=== PATIENT | female | born 1970 | race Caucasian/White ===

== ENCOUNTER 2024-02-25 19:14 | Inpatient (IN) ==
--- NOTE | 2024-02-25 19:35 | Emergency Department Note ---
Impression & Plan Leukocytosis, Abdominal pain, Bowel obstruction ED Provider Note NAME: JAMIE MARTÍNEZ AGE: 53 SEX: F : 1970 ARRIVES VIA: Walk-In INFORMANT: Patient ED PROVIDER(S): Kingston Mac DO CHIEF COMPLAINT: Abdominal pain HPI: Patient is a 53-year-old female with a past medical history of headache and lower back pain who presents to the ER for diffuse abdominal pain. She notes she has not had a bowel movement for 7 days. She is taking laxatives and is unable to go. She has a severe pain throughout her lower abdomen. Denies any urinary symptoms up until about 3 days ago when she has dysuria. Denies any headache or change in vision. No chest pain or shortness of breath. No other exacerbating or remitting factors. Still has her gallbladder and appendix. Additional history obtained from daughter who notes that she has been waxing and waning severe abdominal pain for several days. ADDITIONAL HISTORY OBTAINED: Per HPI Chronic Medical/Social Conditions Affecting Care: Per HPI PAST MEDICAL HISTORY:See Below PAST SURGICAL HISTORY:See Below FAMILY HISTORY:See Below SOCIAL HISTORY:See Below HOME MEDICATIONS:See Below ALLERGIES:See Below VITALS:See Below PHYSICAL EXAMINATION: GENERAL: Sitting up in bed, alert, moderate distress holding abdomen rolling around EYE EXAM: normal conjunctiva. PERRL and EOM's grossly intact. OROPHARYNX: mucous membranes are moist LUNGS: Clear to auscultation. Normal chest wall mechanics HEART: no murmurs, S1 normal and S2 normal ABDOMEN: abdomen soft, mild diffuse lower abdominal pain, normo-active bowel sounds, no masses, no rebound or guarding. BACK: Back is symmetrical on inspection and there is no deformity, no midline tenderness, no CVA tenderness. SKIN: no rashes and no bruising UPPER EXTREMITIES: upper extremities are grossly normal. LOWER EXTREMITIES: No pitting edema. NEURO EXAM: Normal sensorium, cranial nerves II-XII grossly intact, normal speech, no gross weakness of arms, no gross weakness of legs. MEDICAL DECISION MAKING: Patient is a 53-year-old female who presents ER for the below stated complaint. IV was established medicos obtained. Labs show leukocytosis of 20,000. No significant anemia. BMP with hyponatremia at 128. Mild hypokalemia 3.2. LFTs was unremarkable. T. bili slightly elevated at 1.4. Lipase was normal. CT abdomen pelvis showed a likely bowel obstruction secondary to an abnormality of the colon. I called gastroenterology and spoke with Dr. Kilgore who recommended admission and discussion with general surgery. Discussed with Lio from general surgery and patient was seen and evaluated. Patient was given IV fluids. IV Cipro and Flagyl. Discussed with the hospitalist. Patient was also given multiple doses of morphine. Patient was admitted for further workup. Consults/Care Managements Discussions: Per MDM Triage Nursing notes reviewed. Limited review of prior medical records performed Vital Signs: reviewed and remarkable for no significant abnormalities Differential diagnosis: Differential diagnoses includes but is not limited to gastritis, peptic ulcer disease, GERD, gallbladder disease, pancreatitis, small bowel obstruction, appendicitis, diverticulitis, hernia, urinary tract infection, torsion, perforation, trauma, infectious. ER treatment provided: See below Diagnostics interpreted by me include EKG and cardiac monitoring as listed below: -Cardiac Monitoring: An order was placed for continuous cardiac monitoring. The monitor shows a rate of 100 with sinus rhythm. -ECG: none -Laboratory studies:Interpreted by me as stated above in MDM and shown below. 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) Right knee pain (Acute) Shortness of breath (Acute) Shoulder pain (Acute) Shoulder pain (Acute) Social History Smoking Status: Current every day smoker Tobacco Type: Cigarettes Feels Safe at Home: Yes Allergies Allergies Allergy/AdvReac Type Severity Reaction Status Date / Time Penicillins Allergy Severe HIVES Unverified 02/18/17 20:36 fluticasone AdvReac Unknown thrush Unverified 02/18/17 20:36 salmeterol AdvReac Unknown thrush Unverified 02/18/17 20:36 Home Meds Home Medications Medication Instructions Recorded Confirmed aripiprazole 2 mg tablet 2 mg PO DAILY 02/25/24 02/25/24 fluticasone propionate 50 2 spray intranasal DAILY 02/25/24 02/25/24 mcg/actuation nasal spray,suspension hydroxyzine HCl 25 mg tablet 25 mg PO 02/25/24 Results & Data (ED) Vital Signs Vital Signs - 24 hr 02/25/24 19:22 02/25/24 19:35 02/25/24 19:40 Pulse Rate 120 H 76 Pulse Rate [Apical] Pulse Rhythm [Apical] Pulse Strength [Apical] Respiratory Rate 18 Respiratory Effort / Characteristics Respiratory Depth Blood Pressure [Right Arm] Blood Pressure Mean [Right Arm] Blood Pressure Position [Right Arm] Pulse Oximetry 98 Oxygen Delivery Method Room Air Oxygen Flow Rate Sepsis Recent Fever Within 48 Hours No Sepsis New/Unexplained Change in Mental Status No Sepsis Action Taken by Nursing No Action Required 02/25/24 19:44 02/25/24 21:15 02/25/24 22:01 Pulse Rate Pulse Rate [Apical] 111 H 104 H 100 H Pulse Rhythm [Apical] Regular Regular Pulse Strength [Apical] Normal Normal Respiratory Rate 21 18 18 Respiratory Effort / Characteristics Spontaneous Non-Labored Spontaneous Non-Labored Spontaneous Respiratory Depth Normal Normal Blood Pressure [Right Arm] 136/79 124/77 118/78 Blood Pressure Mean [Right Arm] 98 92 91 Blood Pressure Position [Right Arm] Semi-fowlers Lying Lying Pulse Oximetry 94 96 94 Oxygen Delivery Method Nasal Cannula Nasal Cannula Room Air Oxygen Flow Rate 2 2 2 Sepsis Recent Fever Within 48 Hours Sepsis New/Unexplained Change in Mental Status Sepsis Action Taken by Nursing Laboratory Data 02/25/24 19:39 02/25/24 19:39 Lab Results 02/25/24 02/25/24 02/25/24 Range/Units 19:39 19:42 22:23 WBC 28.45 H (4.8-10.8) K/ul RBC 4.69 (4.20-5.40) M/uL Hgb 13.5 (12.0-16.0) g/dl POC Hgb 13.9 (12.0-16.0) g/dl Hct 39.4 (37.0-47.0) % POC Hct 41 (37-47) % MCV 84.0 (80.0-100.0) fL MCH 28.8 (25.0-34.0) pg MCHC 34.3 (32.0-36.0) g/dL RDW Std Deviation 38.3 (36.4-46.3) fL RDW Coeff of Sarthak 12.5 (11.5-14.5) % Plt Count 271 (130-400) K/uL MPV 10.6 (9.4-12.4) fL Immature Gran % (Auto) 1.1 % Neut % (Auto) 85.4 % Lymph % (Auto) 8.6 % [place] % (Auto) 4.6 % Eos % (Auto) 0.0 % Baso % (Auto) 0.3 % Neut # (Auto) 24.28 H (1.40-6.50) K/uL Lymph # (Auto) 2.45 (1.20-3.40) K/uL [place] # (Auto) 1.32 H (0.11-0.59) K/uL Eos # (Auto) 0.00 (0.00-0.50) K/uL Baso # (Auto) 0.09 (0.00-0.20) K/uL Immature Gran # (Auto) 0.31 H (0.01-0.20) K/uL POC Sodium 127 L (135-144) mmol/L Sodium 128 L (136-145) mmol/L POC Potassium 3.1 L (3.3-5.0) mmol/L Potassium 3.2 L (3.5-5.1) mmol/L POC Chloride 88 L (101-112) mmol/L Chloride 90 L (98-107) mmol/L Carbon Dioxide 29 (21-32) mmol/L POC Total CO2 25 (24-31) mmol/L Anion Gap 9 (3-11) POC Anion Gap 18.0 (16-25) mmol/L POC BUN 20 H (7-18) mg/dl BUN 21 (6-23) mg/dl Creatinine 0.91 (0.6-1.2) mg/dl POC Creatinine 1.0 (0.6-1.3) mg/dl Est Cr Clr Drug Dosing Not Reportable eGFR 74.50 BUN/Creatinine Ratio 23.1 H (10-20) Glucose 125 H (70-99(Fasting)) mg/dl POC Glucose (other) 123 H (70-99) mg/dl Lactate 0.7 (0.4-2.0) mmol/L Calcium 8.7 (8.6-10.3) mg/dl POC Ioniz Calcium Laverne 0.86 L (1.12-1.32) mmol/l Total Bilirubin 1.4 H (0.2-1.0) mg/dl AST 11 L (13-39) U/L ALT 10 (7-52) U/L Alkaline Phosphatase 130 H (34-104) U/L Total Protein 6.4 (6.0-8.3) gm/dl Albumin 3.4 (3.4-5.0) gm/dl Globulin 3.0 (2.5-4.0) gm/dl Albumin/Globulin Ratio 1.1 (0.9-2) Lipase 4 L (11-82) U/L Administered Medications Discontinued Medications Sodium Chloride (Nss) 1,000 mls @ 999 mls/hr IV .Q1H1M ONE Stop: 02/25/24 20:35 Last Infusion: 02/25/24 20:45 Dose: Infused Documented By: Admin: 02/25/24 19:40 Dose: 999 mls/hr Documented By: SKYE Metronidazole (Flagyl) 500 mg in 100 mls @ 100 mls/hr IV NOW STA; Protocol Stop: 02/25/24 23:15 Last Admin: 02/25/24 22:56 Dose: 100 mls/hr Documented By: ESTRADA Sodium Chloride (Nss) 1,000 mls @ 999 mls/hr IV .Q1H1M ONE Stop: 02/25/24 23:16 Last Admin: 02/25/24 22:35 Dose: 999 mls/hr Documented By: ESTRADA Ioversol (Optiray 320 100ml) 92 ml IV ONCE ONE Stop: 02/25/24 20:00 Last Admin: 02/25/24 19:59 Dose: 92 ml Documented By: OSMAN Ketorolac Tromethamine (Ketorolac Tromethamine 15 Mg/Ml Vial) 10 mg IV NOW ONE Stop: 02/25/24 19:36 Last Admin: 02/25/24 19:45 Dose: 10 mg Documented By: ESTRADA Morphine Sulfate (Morphine Sulfate 4 Mg/Ml 1 Ml Carp\Vial) 4 mg IV NOW STA Stop: 02/25/24 19:36 Last Admin: 02/25/24 19:45 Dose: 4 mg Documented By: SAUNDRAV Morphine Sulfate (Morphine Sulfate 4 Mg/Ml 1 Ml Carp\Vial) 4 mg IV NOW STA Stop: 02/25/24 22:19 Last Admin: 02/25/24 22:34 Dose: 4 mg Documented By: SAUNDRAV Ondansetron HCl (Ondansetron Inj 2 Mg/Ml 2 Ml Vial) 4 mg IV NOW STA Stop: 02/25/24 19:36 Last Admin: 02/25/24 19:45 Dose: 4 mg Documented By: SAUNDRAV Imaging Data Radiologist's Impression: Abdomen/Pelvis CT 02/25/24 19:33 Exam(s): CT ABDOMEN + PELVIS With Contrast IV Amt: 94 ml optiray 320 EXAM: CT Abdomen and Pelvis With Intravenous Contrast CLINICAL HISTORY: diffuse lower abd pain. TECHNIQUE: Axial computed tomography images of the abdomen and pelvis with intravenous contrast. CTDI is 21.01 mGy and DLP is 994.38 mGy-cm. Automated exposure control was utilized for the study. A dose lowering technique was utilized adhering to the principles of ALARA. CONTRAST: Patient received 94 ml optiray 320 of IV contrast COMPARISON: CT abdomen and pelvis with contrast dated 01/15/2024 FINDINGS: Lung bases: See below. Pleural space: Trace layering subcentimeter bilateral pleural effusions with adjacent presumed compressive subsegmental atelectasis. ABDOMEN: Liver: Unremarkable. No mass. Gallbladder and bile ducts: Cholecystectomy. Mild ectasia of the common bile duct. No intrahepatic biliary dilatation. Pancreas: Unremarkable. No mass. No ductal dilation. Spleen: Unremarkable. No splenomegaly. Adrenals: Unremarkable. No mass. Kidneys and ureters: Unremarkable. No solid mass. No hydronephrosis. Stomach and bowel: Abnormal enhancement throughout the colon. There are areas of abnormal mucosal thickening also noted, most prominently involving the sigmoid colon with a relative abrupt caliber transition between the distal descending and proximal sigmoid colon. No diverticulitis. Prominent stool burden in the descending colon proximal to the transition point with the sigmoid segment. In addition, there is a focal area of narrowing and mucosal thickening involving the distal transverse colon. There is abnormal fluid and gas distended distal small bowel loops throughout the left abdomen and within the pelvis. No significant dilation. PELVIS: Appendix: No findings to suggest acute appendicitis. Bladder: Unremarkable. No mass. Reproductive: Unremarkable as visualized. ABDOMEN and PELVIS: Intraperitoneal space: Mild free fluid noted within the abdomen and most prominently in the dependent pelvis. No loculation. No free air. Bones/joints: Stable postsurgical changes from L2-S1 levels with bilateral pedicle screws and paraspinal rods. Interbody cage noted at L3- L4 level. No acute fracture. No dislocation. Soft tissues: Unremarkable. Vasculature: Unremarkable. No abdominal aortic aneurysm. Lymph nodes: Unremarkable. No enlarged lymph nodes. IMPRESSION: 1. Abnormal enhancement throughout the colon. There are areas of abnormal mucosal thickening also noted, most prominently involving the sigmoid colon with a relative abrupt caliber transition between the distal descending and proximal sigmoid colon. No diverticulitis. Findings suggest inflammatory infectious colitis. 2. Prominent stool burden in the descending colon proximal to the transition point with the sigmoid segment. In addition, there is a focal area of narrowing and mucosal thickening involving the distal transverse colon. This may represent a more prominent area of colitis, a focal contraction or developing stricture. Consider following to resolution to avoid an underlying lesion in this area. 3. There is abnormal fluid and gas distended distal small bowel loops throughout the left abdomen and within the pelvis. No significant dilation. Findings are most consistent with retrograde developing reactive enteritis or retrograde small bowel obstruction from the colonic process. No pneumoperitoneum. 4. Mild free fluid noted within the abdomen and most prominently in the dependent pelvis. No loculation. This is presumed reactive from the colonic process. Electronically signed by: Ewdard Gramajo MD 02/25/24 21:52 PM Discharge Plan Visit Data Chief Complaint: Constipation Stated Complaint: CONSTIPATED,ABD PAIN,TROUBLE BREATHING ED Provider: Kingston Mac Discharge Problem: Leukocytosis, Abdominal pain, Bowel obstruction Forms Stand Alone Forms: [employer] Prescriptions Prescriptions: No Action hydroxyzine HCl 25 mg tablet 25 mg PO aripiprazole 2 mg tablet 2 mg PO DAILY fluticasone propionate 50 mcg/actuation spray,suspension 2 spray INTRANASAL DAILY Referrals Referrals: PCP,NO [Physician] - Discharge Problem: Leukocytosis Qualifiers: Leukocytosis type: unspecified Qualified Code(s): D72.829 - Elevated white blood cell count, unspecified Abdominal pain Qualifiers: Abdominal location: unspecified location Qualified Code(s): R10.9 - Unspecified abdominal pain Bowel obstruction Qualifiers: Intestinal obstruction type: unspecified Intestinal obstruction extent: u nspecified extent Qualified Code(s): K56.609 - Unspecified intestinal obstruction, unspecified as to partial versus complete obstruction
[2024-02-25] MEDS: SODIUM CHLORIDE 0.9% 1,000 ML IV ONE ×2 (19:40→22:35)
[2024-02-25] MEDS: MoRPHine SULFATE 4 MG/ML 1 ML CARP\\VIAL IV STA ×2 (19:45→22:34)
[2024-02-25] MEDS: ONDANSETRON INJ 2 MG/ML 2 ML VIAL IV STA (19:45)
[2024-02-25] MEDS: KETOROLAC TROMETHAMINE 15 MG/ML VIAL IV ONE (19:45)
[2024-02-25 19:48] LABS: Hematocrit (blood only) 39.4 % (37.0-47.0); Hemoglobin 13.5 g/dl (12.0-16.0); Mean Corpuscular Hemoglobin 28.8 pg (25.0-34.0); Mean Corpuscular Hgb Conc 34.3 g/dL (32.0-36.0); Mean Platelet Volume 10.6 fL (9.4-12.4); Platelet Count 271 K/uL (130-400); RDW Coefficient of Variation 12.5 % (11.5-14.5); RDW Standard Deviation 38.3 fL (36.4-46.3); Red Blood Count 4.69 M/uL (4.20-5.40); White Blood Count 28.45 K/ul (4.8-10.8)
[2024-02-25 19:54] LABS: iSTAT Hemoglobin 13.9 g/dl (12.0-16.0); iSTAT Ionized Calcium 0.86 mmol/l (1.12-1.32); iSTAT Potassium 3.1 mmol/L (3.3-5.0)
[2024-02-25] MEDS: OPTIRAY 320 100ml IV ONE (19:59)
[2024-02-25 20:04] LABS: Alanine Aminotransferase 10 U/L (7-52); Albumin Globulin Ratio 1.1 (0.9-2); Albumin Level 3.4 gm/dl (3.4-5.0); Alkaline Phosphatase 130 U/L (34-104); Anion Gap 9 (3-11); Aspartate Aminotransferase 11 U/L (13-39); BUN Creatinine Ratio 23.1 (10-20); Bilirubin,Total 1.4 mg/dl (0.2-1.0); Blood Urea Nitrogen 21 mg/dl (6-23); Calcium 8.7 mg/dl (8.6-10.3); Carbon Dioxide 29 mmol/L (21-32); Chloride 90 mmol/L (98-107); Glucose 125 mg/dl (70-99(Fasting)); Lipase 4 U/L (11-82); Potassium 3.2 mmol/L (3.5-5.1); Sodium 128 mmol/L (136-145); Total Protein 6.4 gm/dl (6.0-8.3)
[2024-02-25 20:10] LABS: Basophils # (auto) 0.09 K/uL (0.00-0.20); Basophils % (auto) 0.3 %; Immature Granulocytes # (auto) 0.31 K/uL (0.01-0.20); Immature Granulocytes % (auto) 1.1 %; Lymphocytes # (auto) 2.45 K/uL (1.20-3.40); Lymphocytes % (auto) 8.6 %; Monocytes # (auto) 1.32 K/uL (0.11-0.59); Monocytes % (auto) 4.6 %; Neutrophils # (auto) 24.28 K/uL (1.40-6.50); Neutrophils % (auto) 85.4 %
--- NOTE | 2024-02-25 21:53 | CT Scan Report ---
Exam(s): CT ABDOMEN + PELVIS With Contrast IV Amt: 94 ml optiray 320 EXAM: CT Abdomen and Pelvis With Intravenous Contrast CLINICAL HISTORY: diffuse lower abd pain. TECHNIQUE: Axial computed tomography images of the abdomen and pelvis with intravenous contrast. CTDI is 21.01 mGy and DLP is 994.38 mGy-cm. Automated exposure control was utilized for the study. A dose lowering technique was utilized adhering to the principles of ALARA. CONTRAST: Patient received 94 ml optiray 320 of IV contrast COMPARISON: CT abdomen and pelvis with contrast dated 01/15/2024 FINDINGS: Lung bases: See below. Pleural space: Trace layering subcentimeter bilateral pleural effusions with adjacent presumed compressive subsegmental atelectasis. ABDOMEN: Liver: Unremarkable. No mass. Gallbladder and bile ducts: Cholecystectomy. Mild ectasia of the common bile duct. No intrahepatic biliary dilatation. Pancreas: Unremarkable. No mass. No ductal dilation. Spleen: Unremarkable. No splenomegaly. Adrenals: Unremarkable. No mass. Kidneys and ureters: Unremarkable. No solid mass. No hydronephrosis. Stomach and bowel: Abnormal enhancement throughout the colon. There are areas of abnormal mucosal thickening also noted, most prominently involving the sigmoid colon with a relative abrupt caliber transition between the distal descending and proximal sigmoid colon. No diverticulitis. Prominent stool burden in the descending colon proximal to the transition point with the sigmoid segment. In addition, there is a focal area of narrowing and mucosal thickening involving the distal transverse colon. There is abnormal fluid and gas distended distal small bowel loops throughout the left abdomen and within the pelvis. No significant dilation. PELVIS: Appendix: No findings to suggest acute appendicitis. Bladder: Unremarkable. No mass. Reproductive: Unremarkable as visualized. ABDOMEN and PELVIS: Intraperitoneal space: Mild free fluid noted within the abdomen and most prominently in the dependent pelvis. No loculation. No free air. Bones/joints: Stable postsurgical changes from L2-S1 levels with bilateral pedicle screws and paraspinal rods. Interbody cage noted at L3- L4 level. No acute fracture. No dislocation. Soft tissues: Unremarkable. Vasculature: Unremarkable. No abdominal aortic aneurysm. Lymph nodes: Unremarkable. No enlarged lymph nodes. IMPRESSION: 1. Abnormal enhancement throughout the colon. There are areas of abnormal mucosal thickening also noted, most prominently involving the sigmoid colon with a relative abrupt caliber transition between the distal descending and proximal sigmoid colon. No diverticulitis. Findings suggest inflammatory infectious colitis. 2. Prominent stool burden in the descending colon proximal to the transition point with the sigmoid segment. In addition, there is a focal area of narrowing and mucosal thickening involving the distal transverse colon. This may represent a more prominent area of colitis, a focal contraction or developing stricture. Consider following to resolution to avoid an underlying lesion in this area. 3. There is abnormal fluid and gas distended distal small bowel loops throughout the left abdomen and within the pelvis. No significant dilation. Findings are most consistent with retrograde developing reactive enteritis or retrograde small bowel obstruction from the colonic process. No pneumoperitoneum. 4. Mild free fluid noted within the abdomen and most prominently in the dependent pelvis. No loculation. This is presumed reactive from the colonic process. Electronically signed by: Edward Gramajo MD 02/25/24 21:52 PM
[2024-02-25] MEDS: metroNIDAZOLE 500 MG/100 ML BAG IV STA (22:56)
--- NOTE | 2024-02-25 23:06 | Surgery Consultation ---
Date of Consultation February 25, 2024 Assessment & Plan (1) Colitis: I discussed with the treating emergency room physician and the patient is being admitted on the hospitalist service. From a surgery perspective the following is recommended: It appears as though the patient has colitis by CT scan in the treating emergency room physician has initiated antibiotics in form of Cipro and Flagyl which should continue Would recommend obtaining stool studies A urinalysis has been ordered and is pending and these results should be followed for N.p.o. status should be implemented Patient is currently being hydrated IV fluids and this should continue with appropriate supplementation of electrolytes Serial labs should be followed It does also appear by CT scan that the patient has an area of narrowing/stricture and areas of her colon. This is likely contributing to the small bowel process of potential developing small bowel obstruction. Would therefore recommend implementing n.p.o. status as noted above. At the present time the patient is not having any nausea or vomiting and therefore think we can hold on placing an NG tube but if she does have any clinical deterioration of her abdominal exam or has any nausea and vomiting that ensues this modality may need to be reconsidered I had a lengthy discussion with the patient and her daughter who was present at bedside. We will try conservative measures for the present time. I did discuss with the patient and daughter that we would prefer conservative measures as outlined above versus any type of exploratory surgery as this would necessitate a colostomy and an unprepped bowel. I also discussed with them that it would be preferable for patient to have a colonoscopy prior to entertaining any surgical intervention should this be required so that the areas of potential stricture/narrowing noted on CT scan it can be properly evaluated. If conservative measures are successful I do feel the patient would benefit from a colonoscopy once she is fully recovered from this acute process. At the present time the patient is normotensive and only has a slight tachycardia with a heart rate approximately 100. She does have a leukocytosis but does not have acute kidney injury and her lactic acid level is normal and therefore I feel conservative measures are warranted at this time. Will continue to follow along with the patient make additional recommendations based on her clinical course as it unfolds. Addendum (6:15 AM) Patient revisited and evaluated at bedside. She notes that her abdominal pain is slightly improved since admission. She remains afebrile and normotensive with a slight tachycardia. On physical exam there is not much change her abdomen is still soft and nonrigid and diffusely tender although does appear to be somewhat less tender than what was noted in the emergency department. Will continue with plan as outlined above. History of Present Illness Reason for Consultation: Colitis History of Present Illness This is a 53-year-old female who presented to the emergency department secondary to abdominal pain. Patient notes that she had some minor abdominal pain that be peter approximately 1 week ago. She notes that over the past week the pain has gotten gradually worse. She notes it is mostly confined to her lower abdomen without radiation. She denies any modifying factors. She does report that she has had some associated nausea and vomiting and over the past 4 days she has had decreased appetite. She denies any fevers, shakes, or chills. She notes that her most recent bowel movement was approximately 1 week ago. She does however, report passing some blood and mucus from her rectum approximately 2 days ago. She specifically denies any weight loss. She has never had a colonoscopy in the past. She is unsure if she has any family history of colon cancer. She has had prior abdominal surgeries in the form of a and a cholecystectomy. Since arrival to the emergency department the patient has had labs and imaging which I independently reviewed. A CT scan of the abdomen pelvis showed the patient had some mild free fluid noted in the abdomen and dependent part of the pelvis. There were no fluid loculations and there is no free air. Patient did have some abnormal enhancement throughout the colon. There are areas of abnormal mucosal thickening most probably noted in the sigmoid colon with abrupt caliber change between the distal descending colon and the proximal sigmoid colon. There is no evidence of diverticulitis. This was concerning for inflammatory/infectious colitis. Patient was noted to have prominent stool burden in the descending colon patient was also noted to have an area of mucosal thickening involving the distal transverse colon also representing an area of colitis. Interpreting radiologist notes that this could also represent a contraction or developing stricture. The distal small bowel loops were noted to have abnormal amount of fluid and gas which is felt to potentially be a developing enteritis or small bowel obstruction related to the underlying colonic process. There is no pneumoperitoneum noted. Labs include a CBC were white blood cell count was elevated 20.4. Her hemoglobin and hematocrit as well as the platelet count were normal. Chemistry profile showed sodium was 128 with a potassium of 3.2. BUN and creatinine were both within. Lactic acid level was not elevated at 0.7. Patient's total bilirubin had a slight elevation of 1.4. Her transaminases were not elevated and her alkaline phosphatase had slight elevation of 130. Her lipase was not elevated. At the time of my interview the patient was in no distress but she was somewhat uncomfortable. Concerning past medical history the patient reports anxiety Concerning past surgical history she reports a history of a and cholecystectomy Concerning social history she is a current smoker Concerning family history she does report a family history of cancer but is unsure what type Allergies Allergy/AdvReac Type Severity Reaction Status Date / Time Penicillins Allergy Severe HIVES Unverified 02/18/17 20:36 fluticasone AdvReac Unknown thrush Unverified 02/18/17 20:36 salmeterol AdvReac Unknown thrush Unverified 02/18/17 20:36 Home Medications Medication Instructions Recorded Confirmed Type aripiprazole 2 mg tablet 2 mg PO DAILY 02/25/24 02/25/24 History fluticasone propionate 50 2 spray intranasal DAILY 02/25/24 02/25/24 History mcg/actuation nasal spray,suspension hydroxyzine HCl 25 mg tablet 25 mg PO 02/25/24 History Patient History Social History Smoking Status: Current every day smoker Tobacco Type: Cigarettes Cigarettes Per Day: 10; Hx Alcohol Use: No Hx Substance Use: No Communication Ability: Effective Mva Still Operator Required: No Beliefs That Will Affect Care: None Current Living Situation Comment: With roommate Feels Safe at Home: Yes Safety Concerns: Feels Safe At This Time Review of Systems Review of Systems: All systems reviewed & are unremarkable except as noted in HPI & below Physical Exam Constitutional: WD/WN, vitals as above Eyes: no conjunctival abnormality ENMT: Ears: no hearing impairment and no external ear abnormality Mouth: no oropharynx abnormality Neck: trachea midline Respiratory: normal respiratory effort; no respiratory distress and no labored breathing Cardiovascular: Rate/Rhythm: regular rate and regular rhythm Gastrointestinal (Abdomen): Patient's abdomen is minimally distended. It is soft and nonrigid. Patient did have some diffuse tenderness throughout her abdomen with even light palpation. With a female nurse communication spec present I performed a digital rectal examination. The patient was noted to have normal sphincter tone. I do not appreciate any masses or fissures. There is no stool noted in the rectal vault. Hemoccult was noted to be negative. Musculoskeletal: No calf tenderness Skin: no rashes Neurologic: moves all extremities Psychiatric: A+Ox3, euthymic affect Results & Data Vital Signs (Past 12 Hours) Vital Signs Pulse Pulse Resp BP Pulse Ox O2 Del Method O2 Flow Rate 02/25/24 22:01 100 H 18 118/78 94 Room Air 2 02/25/24 21:15 104 H 18 124/77 96 Nasal Cannula 2 02/25/24 19:44 111 H 21 136/79 94 Nasal Cannula 2 02/25/24 19:40 76 18 98 Room Air 02/25/24 19:35 120 H PG Care Time/CCT Total # of Minutes Spent Total Time Spent with Patient: Total time spent is greater than 50% in coordination of care (as documented) at patient's floor/unit and/or counseling patient: Coding Level of Care Code 86942 IN/OBS CONSULT LVL 5,80M Diagnoses Colitis K52.9
[2024-02-26] MEDS ORDERED: ACETAMINOPHEN 1,000 MG/100 ML VIAL IV PRN (00:11)
[2024-02-26] MEDS: SODIUM CHLORIDE 0.9% 1,000 ML IV SCH (00:52)
[2024-02-26] MEDS: HYDROmorphone INJ 0.5 MG/0.5 ML SYR IV PRN (00:54)
[2024-02-26] MEDS: ENOXAPARIN INJ 40 MG/0.4 ML SYR SQ SCH (01:21)
[2024-02-26] MEDS: CIPROFLOXACIN / D5W 400 MG/200 ML BAG IV STA (02:13)
--- NOTE | 2024-02-26 03:50 | History & Physical Report ---
Date of Service February 25, 2024 Assessment & Plan (1) Abdominal pain: Plan: 53-year-old female with past medical history significant for hyperlipidemia, depression anxiety, tobacco use disorder, history of sinus surgery, presents with ongoing abdominal pain and constipation for about a week. Patient says since last 1 week she is having diffuse abdominal pain but got worse in last 2 days and also constipated for about a week. Before that she was having regular bowel movements. Denies any blood in the stools the past. Not micturating much last couple of days because she was eating less. Currently no nausea. No chest pain or shortness of breath. Has chronic cough and bringing some phlegm. Denies any fevers. No headache. No runny nose or sore throat. Hemodynamics are okay. Abdominal pain CAT scan showing inflammatory/infectious colitis,possible colon stricture and possible retrograde small bowel obstruction Surgery was consulted by ER Will also consult GI N.p.o. ER started on Cipro and Flagyl which will be continued Pain control IV fluids IV antiemetics as needed Close monitor Depression anxiety Continue Abilify Hyponatremia Sodium 128 Getting fluids We will check urine osmolality and serum osmolality and urine sodium levels Follow repeat labs Hypokalemia Will replace Elevated bilirubin Total 1.4 Follow repeat labs DVT prophylaxis Lovenox Disposition Medical floor Full code. History of Present Illness Chief Complaint: Abdominal pain and constipation Primary Care Provider: Andrew Arias MD 53-year-old female with past medical history significant for hyperlipidemia, depression anxiety, tobacco use disorder, history of sinus surgery, presents with ongoing abdominal pain and constipation for about a week. Patient says since last 1 week she is having diffuse abdominal pain but got worse in last 2 days and also constipated for about a week. Before that she was having regular bowel movements. Denies any blood in the stools the past. Not micturating much last couple of days because she was eating less. Currently no nausea. No chest pain or shortness of breath. Has chronic cough and bringing some phlegm. Denies any fevers. No headache. No runny nose or sore throat. Hemodynamics are okay. Past medical history. As mentioned above. Past surgical history. . Incision and drainage of hematoma in the right leg. Exploration of maxillary sinus. Hysteroscopy and endometrial ablation. Ligation of oviducts. Removal of deep support implant. Cholecystectomy. Repair of lower jaw. Sacroiliac joint injection. Spine surgery. Social history. Smokes half pack a day for many years. Alcohol rarely. No drug use. Family history. Mother has asthma. Father had diabetes. Sudden from ID at age 56. Paternal grandfather had diabetes. Paternal grandmother had diabetes. Allergies Allergy/AdvReac Type Severity Reaction Status Date / Time Penicillins Allergy Severe HIVES Unverified 02/18/17 20:36 fluticasone AdvReac Unknown thrush Unverified 02/18/17 20:36 salmeterol AdvReac Unknown thrush Unverified 02/18/17 20:36 Home Medications Medication Instructions Recorded Confirmed Type aripiprazole 2 mg tablet 2 mg PO DAILY 02/25/24 02/25/24 History fluticasone propionate 50 2 spray intranasal DAILY 02/25/24 02/25/24 History mcg/actuation nasal spray,suspension hydroxyzine HCl 25 mg tablet 25 mg PO 02/25/24 History Past Med/Surg History Problem List (Updated 02/25/24 @ 23:28 by Kingston Mac DO) Bowel obstruction (Acute) Abdominal pain (Acute) Leukocytosis (Acute) Colitis Fall (Acute) Contusion of rib on left side (Acute) Bilateral leg pain (Acute) Bilateral leg pain (Acute) Effusion, left knee (Acute) Headache (Acute) Low back pain (Acute) Low back pain (Acute) 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) Right knee pain (Acute) Shortness of breath (Acute) Shoulder pain (Acute) Shoulder pain (Acute) Social History Smoking Status: Current every day smoker Tobacco Type: Cigarettes Cigarettes Per Day: 10; Hx Alcohol Use: No Hx Substance Use: No Communication Ability: Effective Neuropsychiatrist Required: No Beliefs That Will Affect Care: None Current Living Situation Comment: With roommate Feels Safe at Home: Yes Safety Concerns: Feels Safe At This Time Review of Systems Review of Systems: All systems reviewed & are unremarkable except as noted in HPI & below Physical Exam Physical Exam: General- Not in acute distress Head- atraumatic Eyes- PERRL. ENT- oropharynx clear Neck- supple, no JVD. Lungs- clear to auscultation no wheezing or crackles Heart- regular rhythm; no murmur, no gallop. Abdomen- normal bowel sounds, soft, diffuse tender, no distension Extremities- no pretibial edema, no erythema seen Neuro- alert, oriented PERRL, no facial palsy; no dysarthria; moves extremities Results & Data Results & Data Vital Signs (Past 12 Hours) Vital Signs Pulse Pulse Resp BP Pulse Ox O2 Del Method O2 Flow Rate 02/25/24 22:01 100 H 18 118/78 94 Room Air 2 02/25/24 21:15 104 H 18 124/77 96 Nasal Cannula 2 02/25/24 19:44 111 H 21 136/79 94 Nasal Cannula 2 02/25/24 19:40 76 18 98 Room Air 02/25/24 19:35 120 H Diagnostic Findings Laboratory Results WBC 28.45 K/ul (4.8-10.8) H 02/25/24 19:39 RBC 4.69 M/uL (4.20-5.40) 02/25/24 19:39 Hgb 13.5 g/dl (12.0-16.0) 02/25/24 19:39 POC Hgb 13.9 g/dl (12.0-16.0) 02/25/24 19:42 Hct 39.4 % (37.0-47.0) 02/25/24 19:39 POC Hct 41 % (37-47) 02/25/24 19:42 MCV 84.0 fL (80.0-100.0) 02/25/24 19:39 MCH 28.8 pg (25.0-34.0) 02/25/24 19:39 MCHC 34.3 g/dL (32.0-36.0) 02/25/24 19:39 RDW Std Deviation 38.3 fL (36.4-46.3) 02/25/24 19:39 RDW Coeff of Sarthak 12.5 % (11.5-14.5) 02/25/24 19:39 Plt Count 271 K/uL (130-400) 02/25/24 19:39 MPV 10.6 fL (9.4-12.4) 02/25/24 19:39 Immature Gran % (Auto) 1.1 % 02/25/24 19:39 Neut % (Auto) 85.4 % 02/25/24 19:39 Lymph % (Auto) 8.6 % 02/25/24 19:39 [place] % (Auto) 4.6 % 02/25/24 19:39 Eos % (Auto) 0.0 % 02/25/24 19:39 Baso % (Auto) 0.3 % 02/25/24 19:39 Neut # (Auto) 24.28 K/uL (1.40-6.50) H 02/25/24 19:39 Lymph # (Auto) 2.45 K/uL (1.20-3.40) 02/25/24 19:39 [place] # (Auto) 1.32 K/uL (0.11-0.59) H 02/25/24 19:39 Eos # (Auto) 0.00 K/uL (0.00-0.50) 02/25/24 19:39 Baso # (Auto) 0.09 K/uL (0.00-0.20) 02/25/24 19:39 Immature Gran # (Auto) 0.31 K/uL (0.01-0.20) H 02/25/24 19:39 POC Sodium 127 mmol/L (135-144) L 02/25/24 19:42 Sodium 128 mmol/L (136-145) L 02/25/24 19:39 POC Potassium 3.1 mmol/L (3.3-5.0) L 02/25/24 19:42 Potassium 3.2 mmol/L (3.5-5.1) L 02/25/24 19:39 POC Chloride 88 mmol/L (101-112) L 02/25/24 19:42 Chloride 90 mmol/L (98-107) L 02/25/24 19:39 Carbon Dioxide 29 mmol/L (21-32) 02/25/24 19:39 POC Total CO2 25 mmol/L (24-31) 02/25/24 19:42 Anion Gap 9 (3-11) 02/25/24 19:39 POC Anion Gap 18.0 mmol/L (16-25) 02/25/24 19:42 POC BUN 20 mg/dl (7-18) H 02/25/24 19:42 BUN 21 mg/dl (6-23) 02/25/24 19:39 Creatinine 0.91 mg/dl (0.6-1.2) 02/25/24 19:39 POC Creatinine 1.0 mg/dl (0.6-1.3) 02/25/24 19:42 Est Cr Clr Drug Dosing Not Reportable 02/25/24 19:39 eGFR 74.50 02/25/24 19:39 BUN/Creatinine Ratio 23.1 (10-20) H 02/25/24 19:39 Glucose 125 mg/dl (70-99(Fasting)) H 02/25/24 19:39 POC Glucose (other) 123 mg/dl (70-99) H 02/25/24 19:42 Lactate 0.7 mmol/L (0.4-2.0) 02/25/24 22:23 Calcium 8.7 mg/dl (8.6-10.3) 02/25/24 19:39 POC Ioniz Calcium [place] 0.86 mmol/l (1.12-1.32) L 02/25/24 19:42 Total Bilirubin 1.4 mg/dl (0.2-1.0) H 02/25/24 19:39 AST 11 U/L (13-39) L 02/25/24 19:39 ALT 10 U/L (7-52) 02/25/24 19:39 Alkaline Phosphatase 130 U/L (34-104) H 02/25/24 19:39 Total Protein 6.4 gm/dl (6.0-8.3) 02/25/24 19:39 Albumin 3.4 gm/dl (3.4-5.0) 02/25/24 19:39 Globulin 3.0 gm/dl (2.5-4.0) 02/25/24 19:39 Albumin/Globulin Ratio 1.1 (0.9-2) 02/25/24 19:39 Lipase 4 U/L (11-82) L 02/25/24 19:39 Impressions Abdomen/Pelvis CT 02/25/24 19:33 Exam(s): CT ABDOMEN + PELVIS With Contrast IV Amt: 94 ml optiray 320 EXAM: CT Abdomen and Pelvis With Intravenous Contrast CLINICAL HISTORY: diffuse lower abd pain. TECHNIQUE: Axial computed tomography images of the abdomen and pelvis with intravenous contrast. CTDI is 21.01 mGy and DLP is 994.38 mGy-cm. Automated exposure control was utilized for the study. A dose lowering technique was utilized adhering to the principles of ALARA. CONTRAST: Patient received 94 ml optiray 320 of IV contrast COMPARISON: CT abdomen and pelvis with contrast dated 01/15/2024 FINDINGS: Lung bases: See below. Pleural space: Trace layering subcentimeter bilateral pleural effusions with adjacent presumed compressive subsegmental atelectasis. ABDOMEN: Liver: Unremarkable. No mass. Gallbladder and bile ducts: Cholecystectomy. Mild ectasia of the common bile duct. No intrahepatic biliary dilatation. Pancreas: Unremarkable. No mass. No ductal dilation. Spleen: Unremarkable. No splenomegaly. Adrenals: Unremarkable. No mass. Kidneys and ureters: Unremarkable. No solid mass. No hydronephrosis. Stomach and bowel: Abnormal enhancement throughout the colon. There are areas of abnormal mucosal thickening also noted, most prominently involving the sigmoid colon with a relative abrupt caliber transition between the distal descending and proximal sigmoid colon. No diverticulitis. Prominent stool burden in the descending colon proximal to the transition point with the sigmoid segment. In addition, there is a focal area of narrowing and mucosal thickening involving the distal transverse colon. There is abnormal fluid and gas distended distal small bowel loops throughout the left abdomen and within the pelvis. No significant dilation. PELVIS: Appendix: No findings to suggest acute appendicitis. Bladder: Unremarkable. No mass. Reproductive: Unremarkable as visualized. ABDOMEN and PELVIS: Intraperitoneal space: Mild free fluid noted within the abdomen and most prominently in the dependent pelvis. No loculation. No free air. Bones/joints: Stable postsurgical changes from L2-S1 levels with bilateral pedicle screws and paraspinal rods. Interbody cage noted at L3- L4 level. No acute fracture. No dislocation. Soft tissues: Unremarkable. Vasculature: Unremarkable. No abdominal aortic aneurysm. Lymph nodes: Unremarkable. No enlarged lymph nodes. IMPRESSION: 1. Abnormal enhancement throughout the colon. There are areas of abnormal mucosal thickening also noted, most prominently involving the sigmoid colon with a relative abrupt caliber transition between the distal descending and proximal sigmoid colon. No diverticulitis. Findings suggest inflammatory infectious colitis. 2. Prominent stool burden in the descending colon proximal to the transition point with the sigmoid segment. In addition, there is a focal area of narrowing and mucosal thickening involving the distal transverse colon. This may represent a more prominent area of colitis, a focal contraction or developing stricture. Consider following to resolution to avoid an underlying lesion in this area. 3. There is abnormal fluid and gas distended distal small bowel loops throughout the left abdomen and within the pelvis. No significant dilation. Findings are most consistent with retrograde developing reactive enteritis or retrograde small bowel obstruction from the colonic process. No pneumoperitoneum. 4. Mild free fluid noted within the abdomen and most prominently in the dependent pelvis. No loculation. This is presumed reactive from the colonic process. Electronically signed by: Edward Gramajo MD 02/25/24 21:52 PM Code Status & VTE Plan VTE Prophylaxis Plan VTE Prophylaxis will be ordered: Yes (1) Abdominal pain Abdominal location: unspecified location Qualified Code(s): R10.9 - Unspecified abdominal pain
[2024-02-26 04:08] LABS: Appearance Urine Cloudy (Clear); Bacteria Urine Automated None Seen (None Seen); Bilirubin Urine Negative (Negative); Blood Urine Negative (Negative); Color Urine Yellow; Glucose Urine UA Negative (Negative); Ketones Urine Negative (Negative); Leukocyte Esterase Urine Trace (Negative); Nitrite Urine Negative (Negative); Protein Urine 1+ (Negative); RBC Urine Automated 0-2 /hpf (0-2); Specific Gravity Urine 1.042 (1.000-1.030); Urobilinogen Urine Negative (Negative); WBC Urine Automated 0-5 /hpf (0-5); pH Urine 5.5 (4.5-7.5)
[2024-02-26] MEDS: POTASSIUM CHLORIDE 20 MEQ/15 ML UDC PO STA (04:59)
[2024-02-26] MEDS: metroNIDAZOLE 500 MG/100 ML BAG IV SCH (06:21)
[2024-02-26 07:52] LABS: Calcium 7.7 mg/dl (8.6-10.3); Magnesium 1.8 mg/dl (1.7-2.4); Potassium 3.4 mmol/L (3.5-5.1)
[2024-02-26 07:54] LABS: Basophils # (auto) 0.03 K/uL (0.00-0.20); Basophils % (auto) 0.2 %; Eosinophils # (auto) 0.03 K/uL (0.00-0.50); Eosinophils % (auto) 0.2 %; Hematocrit (blood only) 30.4 % (37.0-47.0); Hemoglobin 10.4 g/dl (12.0-16.0); Immature Granulocytes % (auto) 1.1 %; Lymphocytes # (auto) 1.16 K/uL (1.20-3.40); Lymphocytes % (auto) 6.5 %; Mean Corpuscular Hgb Conc 34.2 g/dL (32.0-36.0); Mean Corpuscular Volume 84.7 fL (80.0-100.0); Monocytes % (auto) 6.1 %; Neutrophils # (auto) 15.38 K/uL (1.40-6.50); Neutrophils % (auto) 85.9 %; Platelet Count 231 K/uL (130-400); RDW Coefficient of Variation 12.6 % (11.5-14.5); RDW Standard Deviation 38.7 fL (36.4-46.3); Red Blood Count 3.59 M/uL (4.20-5.40)
[2024-02-26] MEDS: NICOTINE 14 MG/24 HR PATCH TD SCH (08:10)
[2024-02-26] MEDS: ARIPIprazole 1 MG/ML ORAL SOLN 150 ML BTL PO SCH (08:10)
[2024-02-26] MEDS: FLUTICASONE PROPIONATE NA SPR 16 GM BTL SCH (08:11)
[2024-02-26] MEDS: SODIUM CHLOR 0.45% + 20MEQ KCL 20 MEQ/1,000 ML BAG IV ONE (08:38)
[2024-02-26 09:21] LABS: Albumin Level 2.8 gm/dl (3.4-5.0); Bilirubin Direct 0.3 mg/dl (0-0.2)
--- NOTE | 2024-02-26 09:43 | Surgery Progress Note ---
Date of Service February 26, 2024 Assessment & Plan (1) Colitis: Plan: no indications for surgery cont IVF/antibiotics will continue to follow along (2) Constipation: Admission and Anticipated Discharge Date Admission Date: February 25, 2024 Subjective pt seen. had BM this am which dramatically improved her pain. no n/v Physical Exam Constitutional: WD/WN, vitals as above no acute distress and not ill appearing Eyes: PERRL, conjunctivae normal, anicteric sclerae EOM intact bilaterally ENMT: external ear and nose normal, oropharynx normal Ears: no hearing impairment Neck: trachea midline, no thyromegaly Respiratory: normal respiratory effort; no respiratory distress and does not use accessory muscles Cardiovascular: Rate/Rhythm: regular rate and regular rhythm Gastrointestinal (Abdomen): soft. still with mild lower abdominal tenderness. no g/r/r. non-distended Skin: no rashes, warm and dry Psychiatric: Orientation: alert, oriented x 3 and cooperative Results & Data Vital Signs (Past 12 Hours) Vital Signs Temp Pulse Pulse Pulse Resp BP BP 02/26/24 07:56 02/26/24 07:43 36.4 C L 100 H 16 101/57 L 02/26/24 00:28 36.8 C 97 H 16 101/68 02/25/24 23:34 97 H 129/80 02/25/24 22:01 100 H 18 118/78 Pulse Ox O2 Del Method O2 Flow Rate 02/26/24 07:56 Nasal Cannula 3 02/26/24 07:43 94 Nasal Cannula 3 02/26/24 00:28 93 Nasal Cannula 2 02/25/24 23:34 95 Room Air 02/25/24 22:01 94 Room Air 2 PG Care Time/CCT Total # of Minutes Spent Total Time Spent with Patient: Total time spent is greater than 50% in coordination of care (as documented) at patient's floor/unit and/or counseling patient: Coding Level of Care Code 31165 SUB INP/OBS CARE 05/27MIN Diagnoses Colitis K52.9 Constipation K59.00
[2024-02-26] MEDS: CIPROFLOXACIN / D5W 400 MG/200 ML BAG IV SCH (10:27)
--- NOTE | 2024-02-26 12:18 | Gastrointestinal Consultation ---
Date of Consultation February 26, 2024 Assessment & Plan (1) Abdominal pain: (2) Constipation: (3) Colitis: Abdominal pain with constipation and abnormal CT scan, leukocytosis. Differential diagnosis: Acute left-sided ischemic colitis, diffuse inflammatory bowel disease although clinically we should see more diarrhea with that. Sigmoid tumor is less likely. Recommend to advance diet. Will arrange for a follow-up outpatient colonoscopy in few weeks. History of Present Illness Reason for Consultation: Abdominal pain, constipation. Possible colitis. Attending Physician: Sterling Espinal MD History of Present Illness The patient was admitted to the hospital because of progressive diffuse abdominal pain, abdominal distention and severe constipation of [address] scan of the abdomen and pelvis was suggestive of infectious/inflammatory colitis. In addition there was an area of abrupt caliber change between de scending colon and sigmoid colon. Denies rectal bleeding. The patient's constipation is resolving, she is having loose stools. Abdominal pain is improving as well. No prior colonoscopy. Allergies Allergy/AdvReac Type Severity Reaction Status Date / Time Penicillins Allergy Severe HIVES Unverified 02/18/17 20:36 fluticasone AdvReac Unknown thrush Unverified 02/18/17 20:36 salmeterol AdvReac Unknown thrush Unverified 02/18/17 20:36 Home Medications Medication Instructions Recorded Confirmed Type aripiprazole 2 mg tablet 2 mg PO DAILY 02/25/24 02/25/24 History fluticasone propionate 50 2 spray intranasal DAILY 02/25/24 02/25/24 History mcg/actuation nasal spray,suspension hydroxyzine HCl 25 mg tablet 25 mg PO 02/25/24 History Patient History Social History Smoking Status: Current every day smoker Tobacco Type: Cigarettes Cigarettes Per Day: 10; Hx Alcohol Use: No Hx Substance Use: No Communication Ability: Effective Food And Beverage Intern Required: No Beliefs That Will Affect Care: None Current Living Situation Comment: With roommate Feels Safe at Home: Yes Safety Concerns: Feels Safe At This Time Review of Systems Review of Systems: Constitutional: Denies weight loss, chills, fever, fatigue. Respiratory: Denies cough, denies shortness of breath. Cardiovascular: Denies chest pain and palpitations. Gastrointestinal: As per history of present illness. Physical Exam Physical Exam: Constitutional: WD/WN, vitals as above Respiratory: normal respiratory effort, lungs clear to auscultation Cardiovascular: RRR, no murmur, no edema Gastrointestinal (Abdomen): normal bowel sounds, mild diffuse tenderness on deep palpation without guarding or rebound. No hepatosplenomegaly. Neurological: Oriented x 3, grossly no focal abnormalities, speech is intact. Results & Data Vital Signs (Past 12 Hours) Vital Signs Temp Pulse Resp BP Pulse Ox O2 Del Method O2 Flow Rate 02/26/24 11:21 93 H 95 Nasal Cannula 3 02/26/24 07:56 Nasal Cannula 3 02/26/24 07:43 36.4 C L 100 H 16 101/57 L 94 Nasal Cannula 3 02/26/24 00:28 36.8 C 97 H 16 101/68 93 Nasal Cannula 2 PG Care Time/CCT Total # of Minutes Spent Total Time Spent with Patient: Total time spent is greater than 50% in coordination of care (as documented) at patient's floor/unit and/or counseling patient: Coding Level of Care Code 57470 IN/OBS CONSULT LVL 3,45M Diagnoses Abdominal pain R10.9 Abdominal location: unspecified location Other constipation K59.09 Constipation type: other constipation type Colitis K52.9 (1) Abdominal pain Abdominal location: unspecified location Qualified Code(s): R10.9 - Unspecified abdominal pain (2) Constipation Constipation type: other constipation type Qualified Code(s): K59.09 - Other constipation
[2024-02-26] MEDS ORDERED: LEVALBUTEROL HCL 0.63 MG/3 ML NEB NEB PRN (12:51)
--- NOTE | 2024-02-26 13:06 | Hospitalist Progress Note ---
Date of Service February 26, 2024 Assessment & Plan (1) Abdominal pain: Plan: 53-year-old female with past medical history significant for hyperlipidemia, depression anxiety, tobacco use disorder, history of sinus surgery, presents with ongoing abdominal pain and constipation for about a week. Patient says since last 1 week she is having diffuse abdominal pain but got worse in last 2 days and also constipated for about a week. Before that she was having regular bowel movements. Denies any blood in the stools the past. Not micturating much last couple of days because she was eating less. Currently no nausea. No chest pain or shortness of breath. Has chronic cough and bringing some phlegm. Denies any fevers. No headache. No runny nose or sore throat. Hemodynamics are okay. Colitis DD: Infectious/inflammatory/ possible left sided ischemic colitis Constipation --CT ABD: Findings suggestive of inflammatory/infectious colitis,possible colon stricture and possible retrograde small bowel obstruction --Blood cultures pending --Obtain stool studies if patient develops diarrhea --Normal lactic acid --Normal lipase -- Empirically on Cipro, Flagyl --Liquid diet for today -- Pain control --Continue IV fluids --Appreciate surgery, GI input --Needs follow-up with GI for outpatient colonoscopy Hypovolemic hypotonic hyponatremia Presented with sodium 128 Likely due to poor oral intake Continue gentle IV fluids Sodium 132 today Monitor sodium levels Hypokalemia Replace and monitor Hypoxia Ongoing tobacco use disorder Could have underlying COPD Obtain chest x-ray Mood disorder Continue Abilify DVT Px: Lovenox SQ CODE STATUS Full code Admission and Anticipated Discharge Date Admission Date: February 25, 2024 Subjective Patient is seen and examined at bedside Abdominal pain is better when compared to yesterday Had 1 loose BM this morning States having intermittent dyspnea Denies any chest pain, nausea, vomiting, dizziness No other complaints Review of Systems Review of Systems: All systems reviewed & are unremarkable except as noted in Subjective Physical Exam Physical Exam: Physical Exam: Vitals signs as noted above General Appearance:Moderately built and nourished, no apparent distress Head: normocephalic, Atraumatic Eyes: normal inspection, EOMI Neck: supple, Trachea midline Respiratory/Chest: Decreased coarse breath sounds, minimal crackles/wheezes, No accessory muscle use Cardiovascular: S1, S2, No murmur Abdomen/GI:Soft, + mild diffuse tender, mildly distended, bowel sounds present Extremities/Musculoskeletal:normal inspection, no edema Neurologic/Psych:AAOX3, grossly no focal neurological deficits Skin: normal color, warm Results & Data Results & Data Vital Signs (Past 12 Hours) Vital Signs Temp Pulse Resp BP Pulse Ox O2 Del Method O2 Flow Rate 02/26/24 11:21 93 H 95 Nasal Cannula 3 02/26/24 07:56 Nasal Cannula 3 02/26/24 07:43 36.4 C L 100 H 16 101/57 L 94 Nasal Cannula 3 Laboratory Results Short CBC 02/25/24 02/26/24 Range/Units 19:39 06:41 WBC 28.45 H 17.90 H D (4.8-10.8) K/ul Hgb 13.5 10.4 L D (12.0-16.0) g/dl Hct 39.4 30.4 L (37.0-47.0) % Plt Count 271 231 (130-400) K/uL BMP 02/25/24 02/26/24 19:39 06:41 Sodium 128 L 132 L Potassium 3.2 L 3.4 L Chloride 90 L 100 Carbon Dioxide 29 27 BUN 21 17 Creatinine 0.91 0.74 Glucose 125 H 120 H Calcium 8.7 7.7 L Liver Function 02/25/24 02/26/24 Range/Units 19:39 06:41 Total Bilirubin 1.4 H 1.0 (0.2-1.0) mg/dl Direct Bilirubin 0.3 H (0-0.2) mg/dl AST 11 L 9 L (13-39) U/L ALT 10 7 (7-52) U/L Alkaline Phosphatase 130 H 105 H (34-104) U/L Albumin 3.4 2.8 L (3.4-5.0) gm/dl Urine 02/26/24 Range/Units 03:53 Urine Color Yellow Urine Appearance Cloudy A (Clear) Urine pH 5.5 (4.5-7.5) Ur Specific [place] 1.042 H (1.000-1.030) Urine Protein 1+ H (Negative) Urine Glucose (UA) Negative (Negative) (1) Abdominal pain Abdominal location: unspecified location Qualified Code(s): R10.9 - Unspecified abdominal pain
--- NOTE | 2024-02-26 13:22 | XRay Report ---
SINGLE VIEW CHEST CLINICAL HISTORY: Hypoxia FINDINGS: An AP, portable, upright chest radiograph is compared to chest x-ray and chest CT dated . Correlation is made with abdominal CT dated 02/25/2024. The cardiomediastinal silhouette is unremarkable. Linear air space opacities at both lung bases likely represent segmental atelectasis. N o large pleural effusion or pneumothorax is seen. The bony thorax is grossly intact. IMPRESSION: Linear airspace opacities at both lung bases likely represent platelike/segmental atelect asis. Correlate clinically. ACT 112: Negative or not required by law. Electronically signed by: Marty Dias M.D. 02/26/2024 1:21 PM
[2024-02-26 14:07] LABS: Adenovirus F 40/41 PCR Not Detected (NotDetected); Astrovirus PCR Not Detected (NotDetected); Campylobacter PCR Not Detected (NotDetected); Cryptosporidium PCR Not Detected (NotDetected); Cyclospora cayetanensis PCR Not Detected (NotDetected); Entamoeba histolytica PCR Not Detected (NotDetected); Enteroaggregative E.coli(EAEC) Not Detected (NotDetected); Enteropathogenic E.coli (EPEC) Not Detected (NotDetected); Enterotoxigenic E.coli (ETEC) Not Detected (NotDetected); Giardia lamblia PCR Not Detected (NotDetected); Norovirus GI/GII PCR Not Detected (NotDetected); Plesiomonas shigelloides PCR Not Detected (NotDetected); Rotavirus A PCR Not Detected (NotDetected); Salmonella PCR Not Detected (NotDetected); Sapovirus PCR Not Detected (NotDetected); Shiga-like Toxin E.coli (STEC) Not Detected (NotDetected); Shigella/Enteroinvasive E.coli Not Detected (NotDetected); Vibrio cholerae PCR Not Detected (NotDetected); Vibrio species PCR Not Detected (NotDetected); Yersinia enterocolitica PCR Not Detected (NotDetected)
[2024-02-26 20:20] LABS: BUN Creatinine Ratio 17.7 (10-20); Calcium 7.7 mg/dl (8.6-10.3); Creatinine Clr Calc Pharmacy 93.1 ml/min; Potassium 3.2 mmol/L (3.5-5.1)
[2024-02-26] MEDS: guaiFENesin/DEXTROM SYRUP 100MG/10MG 5ML UDC PO PRN (21:11)
[2024-02-27 08:44] LABS: Hematocrit (blood only) 29.6 % (37.0-47.0); Hemoglobin 10.1 g/dl (12.0-16.0); Mean Corpuscular Hemoglobin 28.7 pg (25.0-34.0); Mean Corpuscular Hgb Conc 34.1 g/dL (32.0-36.0); Mean Corpuscular Volume 84.1 fL (80.0-100.0); Mean Platelet Volume 10.9 fL (9.4-12.4); Platelet Count 236 K/uL (130-400); RDW Coefficient of Variation 12.6 % (11.5-14.5); RDW Standard Deviation 38.5 fL (36.4-46.3); Red Blood Count 3.52 M/uL (4.20-5.40); White Blood Count 10.12 K/ul (4.8-10.8)
[2024-02-27 08:49] LABS: BUN Creatinine Ratio 11.3 (10-20); Calcium 7.6 mg/dl (8.6-10.3); Creatinine Clr Calc Pharmacy 93.1 ml/min; Magnesium 1.7 mg/dl (1.7-2.4)
--- NOTE | 2024-02-27 10:33 | Surgery Progress Note ---
Date of Service February 27, 2024 Assessment & Plan (1) Colitis: Plan: no n/v wbc 10 (17) cont IVF/antibiotics VSS Keep on liquids today will order suppository , pt having liquids stools but feeling constipated No surgical indication Pt seen with as above. continues to improve. no indications for surgery. will follow from periphery. please call if any questions or concerns. (2) Constipation: Plan: ordered supp. Admission and Anticipated Discharge Date Admission Date: February 25, 2024 Subjective +bms liquids but feeling constipated abd pain improving Review of Systems Gastrointestinal: + abdominal pain, + constipation and + d iarrhea/loose stools; no nausea and no vomiting Physical Exam Constitutional: cooperative and comfortable; no acute distress Respiratory: normal respiratory effort; no respiratory distress Gastrointestinal (Abdomen): Percussion/Palpation: + abdomen tender and abdomen soft Results & Data Vital Signs (Past 12 Hours) Vital Signs Temp Pulse Resp BP Pulse Ox O2 Del Method O2 Flow Rate 02/27/24 07:56 Nasal Cannula 3 02/27/24 07:08 98.1 F 89 16 113/68 97 Room Air PG Care Time/CCT Total # of Minutes Spent Total Time Spent with Patient: Total time spent is greater than 50% in coordination of care (as documented) at patient's floor/unit and/or counseling patient: Coding Level of Care Code 01612 SUB INP/OBS CARE 05/27MIN Diagnoses Colitis K52.9 Other constipation K59.09 Constipation type: other constipation type (2) Constipation Constipation type: other constipation type Qualified Code(s): K59.09 - Other constipation
--- NOTE | 2024-02-27 10:34 | Gastroenterology Progress Note ---
Date of Service February 27, 2024 Assessment & Plan (1) Abdominal pain: Plan: Abdominal pain, constipation, leukocytosis. Abdominal pain is improving. Constipation is resolving. Differential diagnosis: Most likely ischemic colitis. Inflammatory bowel disease is less likely. Malignancy is less likely. Plan Advance diet. Colonoscopy as outpatient in few weeks. Admission and Anticipated Discharge Date Admission Date: February 25, 2024 Subjective The patient continues with diffuse abdominal pain, required intravenous hydromorphone earlier today. However the patient indicates that she feels much better than yesterday. Continues with loose stools. Denies chills or fever. The patient is hungry. Asking to advance her diet. WBC down to normal. Blood cultures are negative. Review of Systems Review of Systems: Constitutional: Denies weight loss, chills, fever, fatigue. Respiratory: Denies cough, denies shortness of breath. Cardiovascular: Denies chest pain and palpitations. Gastrointestinal: As above Physical Exam Physical Exam: Constitutional: WD/WN, vitals as above Respiratory: normal respiratory effort, lungs clear to auscultation Cardiovascular: RRR, no murmur, no edema Gastrointestinal (Abdomen): normal bowel sounds, soft, diffuse tenderness on deep palpation without guarding and without rebound. Improved compared to yesterday. No hepatosplenomegaly. Neurological: Oriented x 3, grossly no focal abnormalities, speech is intact. Results & Data Results & Data Vital Signs (Past 12 Hours) Vital Signs Temp Pulse Resp BP Pulse Ox O2 Del Method O2 Flow Rate 02/27/24 07:56 Nasal Cannula 3 02/27/24 07:08 36.7 C 89 16 113/68 97 Room Air Laboratory Results Reviewed PG Care Time/CCT Total # of Minutes Spent Total Time Spent with Patient: Total time spent is greater than 50% in coordination of care (as documented) at patient's floor/unit and/or counseling patient: Coding Level of Care Code 98183 SUB INP/OBS CARE 2/35MIN Diagnoses Abdominal pain R10.9 Abdominal location: unspecified location (1) Abdominal pain Abdominal location: unspecified location Qualified Code(s): R10.9 - Unspecified abdominal pain
[2024-02-27] MEDS: bisacodyL 10 MG SUPP PR STA (11:08)
[2024-02-27] MEDS: POTASSIUM CHLORIDE PWD 20 MEQ PACK PO SCH (12:17)
[2024-02-27] MEDS: POLYETHYLENE (MIRALAX) 17 GM PACK PO PRN (17:13)
--- NOTE | 2024-02-27 17:49 | Hospitalist Progress Note ---
Date of Service February 27, 2024 Assessment & Plan (1) Abdominal pain: Plan: Ms. Madrid is a 53-year-old female with past medical history significant for hyperlipidemia, depression anxiety, tobacco use disorder, history of sinus surgery, presents with ongoing abdominal pain and constipation for about a week. GI consulted and suspects ?ischemic colitis. Patient with advancing diet today. If tolerates, will discuss possible d/c tomorrow #Colitis DD: Infectious/inflammatory/ possible left sided ischemic colitis #Constipation --CT ABD: Findings suggestive of inflammatory/infectious colitis,possible colon stricture and possible retrograde small bowel obstruction --Blood cultures negative --Stool PCR negative --Normal lactic acid --Normal lipase -- Empirically on Cipro, Flagyl, transition to PO in am --advance diet -- Pain control --Appreciate surgery, GI input --Needs follow-up with GI for outpatient colonoscopy #Hypovolemic hypotonic hyponatremia Presented with sodium 128 Likely due to poor oral intake Continue gentle IV fluids Sodium 132 today Monitor sodium levels #Hypokalemia Replace and monitor #Hypoxia Ongoing tobacco use disorder Could have underlying COPD Obtain chest x-ray #Mood disorder Continue Abilify DVT Px: Lovenox SQ CODE STATUS Full code Admission and Anticipated Discharge Date Admission Date: February 25, 2024 Subjective NAEO reports feeling much hungrier and without further concerns, reports pain more gas related Physical Exam Constitutional: WD/WN, vitals as above Respiratory: normal respiratory effort, lungs clear to auscultation Cardiovascular: RRR, no murmur, no edema Gastrointestinal (Abdomen): normal bowel sounds, soft, nontender, no hepatosplenomegaly Results & Data Results & Data Vital Signs (Past 12 Hours) Vital Signs Temp Pulse Resp BP Pulse Ox O2 Del Method O2 Flow Rate 02/27/24 14:51 36.8 C 85 16 139/80 96 Nasal Cannula 3 02/27/24 07:56 Nasal Cannula 3 02/27/24 07:08 36.7 C 89 16 113/68 97 Room Air Laboratory Results Short CBC 02/27/24 Range/Units 07:50 WBC 10.12 (4.8-10.8) K/ul Hgb 10.1 L (12.0-16.0) g/dl Hct 29.6 L (37.0-47.0) % Plt Count 236 (130-400) K/uL BMP 02/26/24 02/27/24 19:52 07:50 Sodium 131 L 132 L Potassium 3.2 L 3.0 L Chloride 100 98 Carbon Dioxide 26 31 BUN 11 7 Creatinine 0.62 0.62 Glucose 102 H 119 H Calcium 7.7 L 7.6 L Medications Administered Home Medications Medication Instructions Recorded Confirmed Last Taken aripiprazole 2 mg tablet 2 mg PO DAILY 02/25/24 02/25/24 02/23/24 fluticasone propionate 50 2 spray intranasal DAILY 02/25/24 02/25/24 02/23/24 mcg/actuation nasal spray,suspension hydroxyzine HCl 25 mg tablet 25 mg PO 02/25/24 02/23/24 Active Medications Generic Name Dose Route Start Last Admin Trade Name Freq PRN Reason Stop Dose Admin Aripiprazole 2 mg 02/26/24 09:00 02/27/24 10:46 Aripiprazole 1 Mg/Ml Oral Soln 150 Ml Btl PO 03/27/24 08:59 2 mg DAILY PRINCESS Administration Enoxaparin Sodium 40 mg 02/26/24 00:11 02/26/24 21:11 Enoxaparin Inj 40 Mg/0.4 Ml Syr SQ 03/27/24 00:10 40 mg PM PRINCESS Administration Fluticasone Propionate 2 sprays 02/26/24 09:00 02/27/24 08:21 Fluticasone Propionate Na Spr 16 Gm Btl NA 03/27/24 08:59 2 sprays DAILY PRINCESS Administration Guaifenesin/Dextromethorphan 5 ml 02/26/24 14:19 02/27/24 06:10 Guaifenesin/Dextrom Syrup 100mg/10mg 5ml Udc PO 03/27/24 14:18 5 ml Q6H PRN Administration Cough Hydromorphone HCl 0.5 mg 02/26/24 00:11 02/27/24 11:14 Hydromorphone Inj 0.5 Mg/0.5 Ml Syr IV 03/11/24 00:10 0.5 mg Q4H PRN Administration Severe Pain (Scale 7, 8, 9,10) Ciprofloxacin 400 mg in 200 mls @ 100 mls/hr 02/26/24 10:00 02/27/24 12:16 Cipro / D5w IV 03/07/24 09:59 Infused Q12H PRINCESS Infusion Protocol Metronidazole 500 mg in 100 mls @ 100 mls/hr 02/26/24 07:00 02/27/24 16:40 Flagyl IV 03/07/24 06:59 Infused Q8H PRINCESS Infusion Protocol Miscellaneous 1 each 02/26/24 08:59 02/27/24 08:21 Remove Nicoderm Patch N/A 03/27/24 08:58 1 each DAILY@0859 PRINCESS Administration Nicotine 1 patch 02/26/24 09:00 02/27/24 08:20 Nicotine 14 Mg/24 Hr Patch TD 03/27/24 08:59 1 patch QAM PRINCESS Administration Polyethylene Glycol 17 gm 02/26/24 12:58 02/27/24 17:13 Polyethylene (Miralax) 17 Gm Pack PO 03/27/24 12:57 17 gm DAILY PRN Administration Constipation Potassium Chloride 40 meq 02/27/24 12:00 02/27/24 12:17 Potassium Chloride Pwd 20 Meq Pack PO 03/28/24 11:59 40 meq BID PRINCESS Administration (1) Abdominal pain Abdominal location: unspecified location Qualified Code(s): R10.9 - Unspecified abdominal pain
[2024-02-27] MEDS: ONDANSETRON INJ 2 MG/ML 2 ML VIAL IV PRN (22:21)
[2024-02-28 06:52] LABS: BUN Creatinine Ratio 6.6 (10-20); Creatinine Clr Calc Pharmacy 94.6 ml/min; Potassium 3.1 mmol/L (3.5-5.1)
[2024-02-28 07:11] VITALS: TEMP 97.9
[2024-02-28] MEDS: POTASSIUM CHLORIDE CRTAB 20 MEQ TABCR PO STA (07:45)
--- NOTE | 2024-02-28 09:16 | Discharge Summary ---
Discharge Summary Date of Service February 28, 2024 Principal Dx & Hospital Course #1 = Principal Diagnosis (1) Abdominal pain: Ms. Madrid is a 53-year-old female with past medical history significant for hyperlipidemia, depression anxiety, tobacco use disorder, history of sinus surgery, presents with ongoing abdominal pain and constipation days prior to admission. Patient admitted and evaluated by GI and surgery. Surgery reviewed imaging that reveal questionable stricture and site of looming obstruction.GI suspected that symptoms likely related to ischemic colitis; however, they do recommend OP evaluation with cscope. Patient was treated with conservative measures. Patient's diet advanced and tolerated with no nasuea or discomfort. Patient ambulating on d/c. 2 Step performed as O2 continued on patient, however, no oxygen required on 2 step. #Colitis DD: Infectious/inflammatory/ possible left sided ischemic colitis #Constipation --CT ABD: Findings suggestive of inflammatory/infectious colitis,possible colon stricture and possible retrograde small bowel obstruction --Blood cultures negative --Stool PCR negative --Normal lactic acid --Normal lipase -- Empirically on Cipro, Flagyl, transition to PO in am --advance diet -- Pain control --Appreciate surgery, GI input --Needs follow-up with GI for outpatient colonoscopy #Hypovolemic hypotonic hyponatremia Presented with sodium 128 Likely due to poor oral intake Continue gentle IV fluids Sodium 132 today Monitor sodium levels #Hypokalemia Replace and monitor Discharge with PO KCL and labs in 1 week with PCP #Hypoxia resolved Ongoing tobacco use disorder Could have underlying COPD 2 step without o2 need #Mood disorder Continue Abilify Notes For Next Care Provider Please obtain BMP within 1 week to assess need for potassium supplementation Please ensure referral for GI for op c-scope Medication Changes From Visit Ciprofloaxcin 500mg bid & flagyl q8h for colitis, 5 more days KCL 20meq daily Admission HPI Per Admitting Provider 53-year-old female with past medical history significant for hyperlipidemia, depression anxiety, tobacco use disorder, history of sinus surgery, presents with ongoing abdominal pain and constipation for about a week. Patient says since last 1 week she is having diffuse abdominal pain but got worse in last 2 days and also constipated for about a week. Before that she was having regular bowel movements. Denies any blood in the stools the past. Not micturating much last couple of days because she was eating less. Currently no nausea. No chest pain or shortness of breath. Has chronic cough and bringing some phlegm. Denies any fevers. No headache. No runny nose or sore throat. Hemodynamics are okay. Past medical history. As mentioned above. Past surgical history. . Incision and drainage of hematoma in the right leg. Exploration of maxillary sinus. Hysteroscopy and endometrial ablation. Ligation of oviducts. Removal of deep support implant. Cholecystectomy. Repair of lower jaw. Sacroiliac joint injection. Spine surgery. Social history. Smokes half pack a day for many years. Alcohol rarely. No drug use. Family history. Mother has asthma. Father had diabetes. Sudden from MS at age 56. Paternal grandfather had diabetes. Paternal grandmother had diabetes. Admission Exam Per Admitting Provider General- Not in acute distress Head- atraumatic Eyes- PERRL. ENT- oropharynx clear Neck- supple, no JVD. Lungs- clear to auscultation no wheezing or crackles Heart- regular rhythm; no murmur, no gallop. Abdomen- normal bowel sounds, soft, diffuse tender, no distension Extremities- no pretibial edema, no erythema seen Neuro- alert, oriented PERRL, no facial palsy; no dysarthria; moves extremities Discharge Exam Constitutional WD/WN, vitals as above Respiratory normal respiratory effort, lungs clear to auscultation Cardiovascular RRR, no murmur, no edema Gastrointestinal (Abdomen) normal bowel sounds, soft, nontender, no hepatosplenomegaly Updated Medication List Medication Instructions Recorded Confirmed Type aripiprazole 2 mg tablet 2 mg PO DAILY 02/25/24 02/25/24 History fluticasone propionate 50 2 spray intranasal DAILY 02/25/24 02/25/24 History mcg/actuation nasal spray,suspension hydroxyzine HCl 25 mg tablet 25 mg PO 02/25/24 History ciprofloxacin HCl 500 mg tablet 500 mg PO BID #10 tabs 02/28/24 Rx metronidazole 500 mg tablet 500 mg PO Q8H 5 days #15 tabs 02/28/24 Rx potassium chloride 20 mEq 20 meq PO DAILY #14 tabs 02/28/24 Rx tablet,extended release(part/cryst) Hospital Stay Data Consultations 02/25/24 22:04 ED Decision to Admit Stat 02/25/24 22:21 Consult General Surgery Stat 02/26/24 08:00 Consult Gastroenterology Routine Diagnostic Imagining Performed 02/25/24 19:33 CT Abd and Pelvis [CT abd pelvis IV con only] Stat Pending Results Patient Have Any Pending Studies at Discharge: No Discharge Instructions Given to Patient (Per Discharging Provider) You were admitted for constipation and abdominal pain, followed by diarrhea. You were evaluated by the [facility], or stomach specialist They recommend establishing with a [facility] as an outpatient to discuss colonoscopy in future after resolution of this acute event. Please continue the following antibiotics for 5 more days: Ciprofloxacin 500mg two times a day, your next dose is this evening Flagyl 500mg three times a day, your next dose is this evening Please continue daily potassium supplementation in the morning and follow up with your PCP for labs by the end of the week to determine if further supplementation is needed. Total Time Total Time Spent Total Time Spent (In Minutes): 35
[2024-02-28] MEDS: CIPROFLOXACIN 500 MG TAB PO STA (09:46)
[2024-02-28 10:42] VITALS: BP 151/76; PULSE 81; RESP 18; O2SAT 96
== END 2024-02-28 10:41 | disposition home or self-care (01) | DRG 394 ==
LOC: ED 19:14 → 3N 22:58 → SUATTDRO 22:58 → 3N 23:34